=== PATIENT | female | born 1930 | race Caucasian/White ===

== ENCOUNTER 2016-08-13 10:50 | Emergency (ER) | payer MEDICARE, MEDICAID ==
[~2016-08-13] VITALS: Ht 149.9 cm; Wt 36.8 kg
[~2016-08-13 10:50] MED LIST: ALBU8.5H2 IH; FLUC150T48 PO
[2016-08-13 11:05] VITALS: BP 113/56; PULSE 89; RESP 22; O2SAT 91
--- NOTE | 2016-08-13 12:30 | ED.REPORT ---
HPI-Back Pain 40 and Over Date of Service Aug 13, 2016 ED Provider: Lizandro Valdivia MD The patient is an 85 year old female with history of COPD, asthmas, headaches, and T7 fracture, who presents to the emergency department complaining of back pain that began a 2.5 weeks ago. The patient states she moved a table a few days before her pain started. She describes the pain as stabbing. Her pain radiates down her right leg to just above her ankle. She also reports numbness to her left leg. Her pain is exacerbated with movement and walking. She denies symptoms on her left leg, fever, chills, bladder/bowel dysfunction, constipation , dysuria or hematuria. She has been taking Ibuprofen 200 mg q4h, Tylenol x2 q4h , and hydrocodone x1 q4h, with no relief of her pain. The patient takes prednisone chronically. The patient cannot tolerate an MRI. Nursing Notes Stated Complaint: BACK PAIN Chief Complaint: Back Pain or Injury Nursing Notes Reviewed: Yes (Fraxion not reconciled) Allergies: Coded Allergies: No Known Allergies (Unverified Allergy, Unknown, 08/13/16) Scheduled Fluconazole (Diflucan) 150 Mg Tablet 150 MG PO DAILY Gabapentin (Gabapentin) 300 Mg Capsule 300 MG PO BID Scheduled PRN Albuterol HFA (Proair HFA) 8.5 Gm Hfa.aer.ad 2 PUFFS IH Q4 PRN PRN For Shortness of Breath oxyCODONE-Acetaminophen 5-325 mg (oxyCODONE-Acetaminophen 5-325 mg) 1 Each Tablet 1 TAB PO Q6H PRN PRN For Pain General Time Seen by MD: 12:24 Chief Complaint Back pain Hx Obtained From: Patient Arrived By: Walk-in Sudden in Onset?: No Onset Occurred: More than a week ago... Symptom Duration: Since onset Caused by: Spontaneous/no mechanism Quality: Painful Radiation: : Right leg below knee Severity: Current: Moderate Severity: Maximum: Moderate Recent Healthcare: No recent doctor visit, No recent hospitalization Similar Sx Previous: Yes Past Medical History Past Medical History Asthma COPD History of headaches History of gallbladder disease History of T7 fracture Records indicate a presumptive history of coronary artery disease, for which aggressive management was not recommended Past Surgical History Inguinal Hernia Family History Noncontributory Smoking History Current Every Day Smoker Social History Alcohol Use: Denies alcohol use Other Social History: Good social support, Local resident Ambulatory Status Independent Review of Systems Constitutional: Denies: Chills, Fever GI: Denies: Abdominal pain, Constipation Female: Denies: Dysuria, Hematuria Musculoskeletal: Reports: Back pain, Extremity pain (left leg) Neurologic: Reports: Numbness (left leg), Denies: Bladder dysfunction, Bowel dysfunction, Problem walking Complete sys rev & neg: except as marked. Physical Exam Initial Vital Signs Vital Signs (First) Date Time Temp Pulse Resp B/P Pulse Ox O2 Delivery O2 Flow Rate FiO2 08/13/16 11:05 36.7 89 22 113/56 91 Room Air Initial VS: Reviewed, Vital signs normal (O2 say on low range of normal) Head / Eyes: Atraumatic, Normocephalic, PERRL ENT: Mucous membranes moist, Conjunctiva normal, No scleral icterus Neck: Supple, Non-tender, Full range of motion Extremities: Vascular intact, Neuro intact, No swelling, No tenderness Skin: Warm, Dry, No cyanosis Psychiatric: Mood/affect normal, Behavior normal, Normal thought content General/Constitutional: Awake, Alert, Cooperative Appearance / Presentation: Positive: Cachectic Highly energetic individual. She has a hard time sitting still. Respiratory / Chest: Breath sounds = bilat, No respiratory distress, No rales, No rhonchi, No wheezing Diminished Breath Sounds: Positive: Decreased bilateral Not visibly dyspneic or tachypneic. The patient states her breathing is doing quite well. Cardiovascular: Heart rate NL, Regular rhythm, Heart sounds NL, No gallop, No murmurs, No rubs, Peripheral circulation NL Abdomen: Atraumatic, Soft, Non-tender, McBurney's non-tender, No guarding, No rebound, BS normoactive, No distention, No hernia, No palpable mass, No pulsatile mass Back: No midline vertebral tend, Straight leg raise neg Neurologic: Oriented X3, Speech NL, No motor deficits, No sensory deficits, Cerebellar NL, Memory NL, Gait NL Normal motor and sensory function. No gross focal deficits. Interpretation & Diagnostics Interpretation & Diagnostics: CT LUMBAR SPINE IMPRESSION: 1. No acute compression deformity of the lumbar spine. 2. Stable superior endplate depression at T12 when compared with the study from 2012. 3. 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 3. No canal stenosis of the lumbar spine. 4. Mild right convex scoliosis. 5. Aortic atherosclerosis. Dictated by: Mariluz Hansen M.D. on 08/13/2016 at 14:25 Re-Eval/Medical Decision Med Decision/Clinical Course This is an 85-year-old female presents with an exacerbation of back pain. She is a chronic smoker, she is on daily prednisone as a result of her resultant COPD, which reports she was pushing a table about 2 weeks ago, and then shortly thereafter developed back pain, there is a sciatic component of radiation down the right leg. She reports being seen at urgent care and given hydrocodone which did not really help. Some ibuprofen and Tylenol since she ran out of hydrocodone, but could not sleep last night secondary to pain so came to the emergency department. We will she has pain down the right leg, she denies weakness, she denies bowel or bladder changes, but she does report pain and discomfort ambulation. Reports she has had chronic back pain in the past, but states than sciatica is different. She has no previous back surgeries, no recent infections or risk factors indicate an epidural abscess would be likely, or probable. The patient is energetic, is ambulatory, but appears mildly uncomfortable. She has a negative straight leg raise test, has no motor symptoms but reports discomfort with her sciatica. She is while energetic, still somewhat frail, cachectic appearing individual. Given her age, new onset sciatica offered MRI-patient states she cannot tolerate an MRI will not undergo one. I offered a CT scan given her age, smoking, chronic prednisone rest, mechanism does include the risk for an acute compression fracture-and she accepted this, and the CT was performed but was negative for clear appreciable pathology. In the meantime patient received a single dose of oxycodone, and I discussed the option of increasing her chronic gabapentin from 300 mg once a day, to twice a day. On reexamination the patient's mobile, she wished to go home. She is still having some pain but reports excessively improved. She demonstrates no drowsiness. Need for bowel regimen was discussed and she says she has stool softener she will take at home. The need for follow-up was also reviewed. Side effects of medications discussed. Routine precautions and return precautions were reviewed. She was discharged in significant improvement. Source of Hx: Old records, Family Re-Evaluation/Progress #1: Time of Eval: 13:06 Re-Evaluation/Progress Note: The patient ambulated to the restroom with no assistance. Re-Evaluation/Progress #2: Time of Eval: 14:48 Re-Evaluation/Progress Note: Rechecked the patient. Discussed results, diagnosis, and plan for discharge. All questions were addressed. Counseled Regarding: Diagnosis, Need for follow-up, When/why to return to ED Discharge & Departure Impression: Primary Impression: Low back pain Chronicity: acute Back pain laterality: right Sciatica presence: with sciatica Sciatica laterality: sciatica of right side Qualified Code: M54.41 - Lumbago with sciatica, right side Disposition: Home Discharge Condition All VS Reviewed: Yes Condition: Stable Additional Instructions: 1. The CT scan did not reveal any fractures or impingement of the spinal canal. 2. If needed take oxycodone/APAP 5/325 one tab up to three times a day for pain. NOTE: This medication contains a narcotic and causes drowsiness. NO driving for at least 4-6 hours after taking. Be aware this medicine causes dizziness. It also causes constipation so take a stool softener daily if using this medication. 3. Increase your gabapentin to 300mg twice a day 4. Call for an appointment with Raquel Suggs 5. Return if new or worsening symptoms. Referrals: Corina Suggs (PCP) Rayaibadelia Attestation Portions of this note were transcribed by Quin Delvalle. I, Dr. Valdivia personally performed the history, physical exam and medical decision-making; I reviewed and confirmed the accuracy of the information in the transcribed note. Signed by: Hong Gregg, 08/13/2016 and 1500. copies to: Corina Suggs Matthew F MD Aug 13, 2016 12:30 Quin Delvalle Aug 13, 2016 12:45
--- NOTE | 2016-08-13 14:40 | DRSVH ---
PROCEDURE: CT LUMBAR SPINE WITHOUT CONTRAST ([id number]) INDICATIONS: back pain TECHNIQUE: Noncontrast 3 mm thick sections acquired from the T12 level to the sacrum. Sagittal and coronal refo rmats were constructed. For radiation dose reduction, the following was used: automated exposure co ntrol. COMPARISON: [facility], CT, ABD/PELVIS W/CON (PN[facility]), 11/11/2011, 17:59. [facility], CR, SPINE THORACIC 3VW, 07/18/2014, 10:10. FINDINGS: Image quality: Excellent. Bones: A moderate wedge compression deformity is present at the superior endplate of T12 with approx imately 45% vertebral body height loss. This is similar in appearance to the study dated 11/11/11. No other wedge compression deformities. Severe degenerative changes are present throughout the lumbar sp ine including intervertebral disc space narrowing, endplate sclerosis and osteophytosis. There is 14 rightward curvature of the lumbar spine centered at L3. No canal stenosis. There is moderate to severe foraminal stenosis throughout the lumbar spine. Soft tissues: No retroperitoneal masses or hematomas. Dense atheromatous calcification is present thr oughout the abdominal aorta and iliac arteries. No aortic aneurysm. IMPRESSION: 1. No acute compression deformity of the lumbar spine. 2. Stable superior endplate depression at T12 when compared with the study from 2011. 3. 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 3. No canal stenosis of the lumbar spine. 4. Mild right convex scoliosis. 5. Aortic atherosclerosis. Dictated by: Mariluz Hansen M.D. on 08/13/2016 at 14:25 Approved by: Mariluz Hansen M.D. on 08/13/2016 at 14:38
[2016-08-13] MEDS ORDERED: OXYC1TAB24 PO (14:53)
[2016-08-13] MEDS ORDERED: GABA-502 PO (14:53)
== END 2016-08-13 15:05 | disposition home or self-care (01) ==
LOC: SED 10:50
DX: M54.41 Lumbago with sciatica, right side (principal); X50.0XXA Overexertion from strenuous movement or load, initial encounter; Y92.9 Unspecified place or not applicable; Y93.E9 Activity, other interior property and clothing maintenance; Y99.8 Other external cause status; J45.909 Unspecified asthma, uncomplicated; J44.9 Chronic obstructive pulmonary disease, unspecified; F17.200 Nicotine dependence, unspecified, uncomplicated; I70.0 Atherosclerosis of aorta; Z87.828 Personal history of other (healed) physical injury and trauma; Z87.898 Personal history of other specified conditions; Z79.52 Long term (current) use of systemic steroids